=== PATIENT | male | born 1985 | race Hispanic/Latino ===

== ENCOUNTER → 2017-02-02 | Outpatient (CLI) | payer SELFPAY ==
--- NOTE | 2017-02-02 17:58 | Diagnostic Imaging Report ---
INDICATION: Left-sided flank pain. TECHNIQUE: KUB obtained at 5:57 p.m. FINDINGS: The abdominal bowel gas pattern is unremarkable. There is no sign of obstruction or ileus. There is no suspicious calcification. IMPRESSION: Negative KUB. Dictated by: Dictated on workstation # [id number]
== END ==
LOC: RAD 17:09
PROVIDERS: ATTEND Urology
DX: N20.0 Calculus of kidney (principal)
CPT/HCPCS: 74000

== ENCOUNTER → 2017-02-22 | Outpatient (CLI) | payer SELFPAY ==
--- NOTE | 2017-02-22 18:00 | Diagnostic Imaging Report ---
PROCEDURE: CT abdomen and pelvis without contrast. TECHNIQUE: Multiple contiguous axial images were obtained through the abdomen and pelvis without the use of intravenous contrast. INDICATION: Left flank pain, hematuria. COMPARISON: 02/20/2016. DISCUSSION: The visualized lung bases are well aerated. Normal heart size. No pleural or pericardial fluid. The liver, gallbladder, stomach, pancreas, spleen, and adrenal glands are unremarkable. There is no renal stone or hydronephrosis identified. The urinary bladder and prostate are unremarkable. There is no ascites or pathologically enlarged lymph nodes identified. Mild constipation. No obstruction, pneumatosis, or pneumoperitoneum. No acute osseous abnormality identified. IMPRESSION: 1. Mild constipation. 2. No renal stone or obstruction. Dictated by: Dictated on workstation # [id number]
== END ==
LOC: RAD 16:38
PROVIDERS: ATTEND Urology
DX: R10.32 Left lower quadrant pain (principal); R31.9 Hematuria, unspecified
CPT/HCPCS: 74176